=== PATIENT | female | born 1970 | race Caucasian/White ===

== ENCOUNTER 2022-12-18 17:57 | Inpatient (IN) | payer OTHER ==
[~2022-12-18] VITALS: Ht 170.2 cm; Wt 60.4 kg
[2022-12-18 20:56] LABS: BASOPHILS % (AUTO) 0.8 % (0.0-2.0); EOSINOPHILS % (AUTO) 6.8 % (1.0-6.0); HEMOGLOBIN 13.3 g/dL (12.0-16.0); LYMPHOCYTES # (AUTO) 1.5 K/uL (1.0-4.8); LYMPHOCYTES % (AUTO) 23.1 % (22.0-44.0); MEAN CORPUSCULAR HEMOGLOBIN 27.9 pg (26.0-34.0); MEAN CORPUSCULAR HGB CONC 31.6 G/dL (31.0-37.0); MEAN CORPUSCULAR VOLUME 88 fL (80-100); MONOCYTES # (AUTO) 0.4 K/uL (0.1-1.0); MONOCYTES % (AUTO) 5.8 % (2.0-9.0); NEUTROPHILS # (AUTO) 4.2 K/uL (1.8-7.7); NEUTROPHILS % (AUTO) 63.5 % (40.0-70.0); PLATELET COUNT (AUTO) 177 K/uL (150-450); RED BLOOD CELL COUNT(AUTO) 4.75 MIL/uL (4.00-5.20); RED CELL DISTRIBUTION WIDTH 13.8 % (11.5-14.5)
[2022-12-18 21:07] LABS: ANION GAP 3 mmol/L (8-16); B-TYPE NATRIURETIC PEPTIDE 170 pg/mL (0-100); CALCIUM, TOTAL 9.3 mg/dL (8.8-10.5); CARBON DIOXIDE 34 mmol/L (22-29); CHLORIDE 101 mmol/L (98-107); CREATININE 0.89 mg/dL (0.60-1.30); GLOMERULAR FILTR. RATE CALC > 60 mL/min (>60); GLUCOSE,RANDOM 87 mg/dL (70-110); POTASSIUM 4.2 mmol/L (3.5-5.1); SODIUM SERUM 138 mmol/L (136-145)
[2022-12-18 21:12] LABS: ALANINE AMINOTRANSFERASE 29 U/L (12-78); ALBUMIN 3.3 g/dL (3.4-5.0); ALKALINE PHOSPHATASE 65 U/L (46-116); ASPARTATE AMINOTRANSFERASE 17 U/L (15-37); BILIRUBIN,TOTAL 0.2 mg/dL (0.1-1.0); TOTAL PROTEIN, SERUM 6.4 g/dL (6.4-8.2)
[2022-12-18 21:36] LABS: APPEARANCE,URINE CLEAR (CLEAR); BILIRUBIN,URINE NEGATIVE (NEGATIVE); GLUCOSE, URINE (UA) NEGATIVE (NEGATIVE); KETONES,URINE NEGATIVE (NEGATIVE); LEUKOCYTE ESTERASE ,URINE LARGE (NEGATIVE); NITRATE,URINE NEGATIVE (NEGATIVE); OCCULT BLOOD,URINE NEGATIVE (NEGATIVE); PROTEIN,URINE NEGATIVE (NEGATIVE); SPECIFIC GRAVITIY, URINE 1.022 (1.003-1.030); UROBILINOGEN,URINE <=1.0 mg/dL (<=1.0)
[2022-12-18 21:43] LABS: AMPHET/METH SCREEN,URINE NEGATIVE (NEGATIVE); BARBITURATE SCREEN, URINE NEGATIVE (NEGATIVE); BENZODIAZEPINES SCREEN,URINE NEGATIVE (NEGATIVE); CANNABINOID SCREEN,URINE POSITIVE (NEGATIVE); COCAINE SCREEN,URINE NEGATIVE (NEGATIVE); METHADONE SCREEN, URINE NEGATIVE (NEGATIVE); OPIATE SCREEN,URINE NEGATIVE (NEGATIVE); PHENCYCLIDINE SCREEN,URINE NEGATIVE (NEGATIVE)
[2022-12-18 21:44] LABS: BACTERIA,URINE Few /HPF (None Seen); SQUAMOUS EPITHELIAL CELL,UR Moderate /LPF (None Seen); WBC,URINE 26-50 /HPF (0-5)
[2022-12-18] MEDS ORDERED: ASPIRIN 81 MG CHEWABLE TABLET PO ONE (21:45)
[2022-12-18] MEDS ORDERED: AmLODIPine BESYLATE 10 MG TABLET PO ONE (21:45)
[2022-12-18] MEDS ORDERED: NITROGLYCERIN 0.4 MG SUBLINGUAL TABLET #25 SL ONE (21:45)
[2022-12-18] MEDS ORDERED: CefTRIAXone 1 GM/DEXTROSE 50 ML IV ONE (22:00)
[2022-12-18] MEDS ORDERED: ONDANSETRON HCL 4 MG/2 ML VIAL IVP PRN (22:15)
[2022-12-18] MEDS: LOSARTAN POTASSIUM 25 MG TABLET PO SCH (22:25)
[2022-12-18] MEDS: NITROGLYCERIN 2% (1 GM=INCH) OINTMENT PACKET TP SCH (22:26)
[2022-12-18] MEDS: HEPARIN SODIUM,PORCINE 5,000 UNITS/ML VIAL SQ SCH (23:05)
[2022-12-18 23:10] VITALS: BP 207/94; PULSE 59; RESP 18; TEMP 98
[2022-12-18] MEDS: ACETAMINOPHEN 325 MG TABLET PO PRN (23:15)
[2022-12-18] MEDS ORDERED: LABETALOL HCL 5 MG/ML 20 ML VIAL IVP ONE (23:30)
[2022-12-18] MEDS: MELATONIN 3 MG TABLET PO PRN (23:43)
[2022-12-19] VITALS (11 sets, daily range): BP systolic 139–205; BP diastolic 68–105; PULSE 54–80; RESP 18–20; TEMP 97.5–98.7; O2SAT 99
[2022-12-19] MEDS: NITROGLYCERIN 2% (1 GM=INCH) OINTMENT PACKET TP SCH ×4 (05:03→22:18)
[2022-12-19] MEDS: HEPARIN SODIUM,PORCINE 5,000 UNITS/ML VIAL SQ SCH ×2 (08:25→16:02)
[2022-12-19] MEDS: LOSARTAN POTASSIUM 25 MG TABLET PO SCH ×2 (08:25→20:25)
[2022-12-19] MEDS: AMINOPHYLLINE 25 MG/ML 10 ML VIAL IVP PRN (10:05)
[2022-12-19] MEDS ORDERED: SESTAMIBI TC99M/UD ISOTOPE 1 EA INJ INJ ONE ×2 (10:15→12:15)
[2022-12-19] MEDS ORDERED: REGADENOSON 0.4 MG/5 ML PF SYRINGE IVP ONE ×2 (11:00→12:34)
[2022-12-19] MEDS ORDERED: AMINOPHYLLINE 25 MG/ML 10 ML VIAL IV ONE (12:34)
[2022-12-19] MEDS: HydrALAZINE HCL 20 MG/ML VIAL IVP PRN (18:52)
[2022-12-19] MEDS: ACETAMINOPHEN 325 MG TABLET PO PRN (18:52)
[2022-12-19] MEDS ORDERED: CefTRIAXone 1 GM/DEXTROSE 50 ML IV SCH (22:00)
[2022-12-19] MEDS ORDERED: SODIUM CHLORIDE 0.9% 100 ML ONE (22:19)
[2022-12-20] MEDS: HEPARIN SODIUM,PORCINE 5,000 UNITS/ML VIAL SQ SCH ×3 (00:31→17:11)
[2022-12-20] MEDS: ACETAMINOPHEN 325 MG TABLET PO PRN (00:31)
[2022-12-20] MEDS: MELATONIN 3 MG TABLET PO PRN (00:31)
[2022-12-20 00:40] VITALS: BP 121/83; PULSE 62; RESP 20; TEMP 98.6
[2022-12-20 05:10] VITALS: BP 172/83; PULSE 52; RESP 20; TEMP 97.8
[2022-12-20] MEDS: HydrALAZINE HCL 20 MG/ML VIAL IVP PRN (06:33)
[2022-12-20] MEDS: NITROGLYCERIN 2% (1 GM=INCH) OINTMENT PACKET TP SCH ×3 (06:33→17:12)
[2022-12-20 07:45] VITALS: BP 152/84; PULSE 66; RESP 21; TEMP 97.8
[2022-12-20] MEDS: LOSARTAN POTASSIUM 25 MG TABLET PO SCH (08:15)
[2022-12-20 11:22] VITALS: BP 144/68; PULSE 77; RESP 20; TEMP 98.2
[2022-12-20] MEDS ORDERED: CEFT1VIA65 IV (15:37)
[2022-12-20] MEDS ORDERED: LOSA-382 PO (15:38)
[2022-12-20 15:39] VITALS: BP 160/77; PULSE 76; RESP 20; TEMP 98.4
[2022-12-23] MEDS ORDERED: TRAZ150T79 PO (00:17)
[2022-12-23] MEDS ORDERED: NITR50CA3 PO (00:17)
[2022-12-23] MEDS ORDERED: HYDR25TA2 PO ×2 (00:17→11:15)
[2022-12-23] MEDS ORDERED: LISI-894 PO (00:17)
[2022-12-23] MEDS ORDERED: CLON-501 PO ×2 (00:17→11:15)
[2022-12-23] MEDS ORDERED: AMLO-258 PO (11:15)
[2022-12-23] MEDS ORDERED: LOSA-382 PO (11:15)
[2022-12-24] MEDS ORDERED: AMLO-258 PO (14:40)
[2022-12-24] MEDS ORDERED: CLON0.1T2 PO ×2 (14:41→14:42)
[2022-12-24] MEDS ORDERED: LOSA-382 PO (14:41)
== END 2022-12-20 20:11 | DRG 305 ==
LOC: EMS 17:58 → 5S 22:34
PROVIDERS: ADMIT Internal Medicine; ATTEND Internal Medicine
DX: I16.1 Hypertensive emergency (principal); N39.0 Urinary tract infection, site not specified; R07.89 Other chest pain; I10 Essential (primary) hypertension; R94.31 Abnormal electrocardiogram [ECG] [EKG]; F19.11 Other psychoactive substance abuse, in remission; R00.1 Bradycardia, unspecified; R77.8 Other specified abnormalities of plasma proteins; M17.0 Bilateral primary osteoarthritis of knee; G89.29 Other chronic pain; F17.210 Nicotine dependence, cigarettes, uncomplicated; Z91.010 Allergy to peanuts; Z91.018 Allergy to other foods
CPT/HCPCS: 71045; 78452; 80053; 80307; 81001; 83880; 84484; 85025; 85730; 87086; 87186; 93005; 99285; A9500; J0280; J0360; J0696; J1644; J2785; J3490; J7050; 36415-L1; 36415-TC

== ENCOUNTER 2023-12-11 03:52 | Emergency (ER) | payer MEDICAID, OTHER ==
[~2023-12-11] VITALS: Ht 170.2 cm; Wt 85.0 kg
[~2023-12-11 03:52] MED LIST: AMLO-258 PO; CLON0.1T2 PO; LOSA-382 PO
[2023-12-11 04:57] VITALS: TEMP 98.2
[2023-12-11 05:07] LABS: BASOPHILS % (AUTO) 0.3 % (0.0-2.0); EOSINOPHILS % (AUTO) 1.3 % (1.0-6.0); HEMATOCRIT 44.9 % (36-46); HEMOGLOBIN 14.7 g/dL (12.0-16.0); LYMPHOCYTES # (AUTO) 0.9 K/uL (1.0-4.8); LYMPHOCYTES % (AUTO) 5.8 % (22.0-44.0); MEAN CORPUSCULAR HEMOGLOBIN 29.5 pg (26.0-34.0); MEAN CORPUSCULAR HGB CONC 32.7 G/dL (31.0-37.0); MEAN CORPUSCULAR VOLUME 90 fL (80-100); MONOCYTES # (AUTO) 0.8 K/uL (0.1-1.0); MONOCYTES % (AUTO) 5.5 % (2.0-9.0); NEUTROPHILS # (AUTO) 13.2 K/uL (1.8-7.7); PLATELET COUNT (AUTO) 197 K/uL (150-450); RED BLOOD CELL COUNT(AUTO) 4.96 MIL/uL (4.00-5.20); RED CELL DISTRIBUTION WIDTH 12.9 % (11.5-14.5); WHITE BLOOD COUNT (AUTO) 15.2 K/uL (4.5-11.0)
[2023-12-11 05:18] LABS: ANION GAP 8 mmol/L (8-16); CALCIUM, TOTAL 10.4 mg/dL (8.8-10.5); CARBON DIOXIDE 32 mmol/L (22-29); CHLORIDE 103 mmol/L (98-107); CREATININE 1.14 mg/dL (0.60-1.30); GLOMERULAR FILTR. RATE CALC 50 mL/min (>60); GLUCOSE,RANDOM 114 mg/dL (70-110); LIPASE 30 U/L (16-77); POTASSIUM 4.2 mmol/L (3.5-5.1); SODIUM SERUM 143 mmol/L (136-145); UREA NITROGEN, BLOOD 16 mg/dL (7-18)
[2023-12-11 05:25] LABS: APPEARANCE,URINE CLEAR (CLEAR); COLOR,URINE YELLOW (YELLOW); GLUCOSE, URINE (UA) NEGATIVE (NEGATIVE); KETONES,URINE TRACE mg/dL (NEGATIVE); LEUKOCYTE ESTERASE ,URINE SMALL (NEGATIVE); NITRATE,URINE NEGATIVE (NEGATIVE); OCCULT BLOOD,URINE NEGATIVE (NEGATIVE); PH,URINE 5.5 (5.0-8.0); PROTEIN,URINE 30-70 mg/dL (NEGATIVE)
[2023-12-11 05:26] LABS: TROPONIN I-HIGH SENSITIVITY 7 ng/L (<51)
[2023-12-11 05:27] LABS: NEUTROPHILS % (AUTO) 87.1 % (40.0-70.0)
[2023-12-11 05:28] LABS: BILIRUBIN,URINE SMALL (NEGATIVE)
[2023-12-11] MEDS: AmLODIPine BESYLATE 10 MG TABLET PO ONE (05:37)
[2023-12-11 05:39] VITALS: BP 152/94; PULSE 74; RESP 18
[2023-12-11 05:41] LABS: BACTERIA,URINE None Seen /HPF (None Seen); RBC,URINE 0-2 /HPF (0-2); SQUAMOUS EPITHELIAL CELL,UR Few /LPF (None Seen)
[2023-12-11 06:30] LABS: ALANINE AMINOTRANSFERASE 34 U/L (12-78); ALBUMIN 3.9 g/dL (3.4-5.0); ALKALINE PHOSPHATASE 97 U/L (46-116); ASPARTATE AMINOTRANSFERASE 24 U/L (15-37); BILIRUBIN,TOTAL 0.6 mg/dL (0.1-1.0)
[2023-12-11] MEDS: FAMOTIDINE 20 MG/2 ML VIAL IVP ONE (06:30)
[2023-12-11] MEDS: ONDANSETRON HCL 4 MG/2 ML VIAL IVP ONE (06:30)
[2023-12-11] MEDS: SODIUM CHLORIDE 0.9% 1,000 ML IV ONE (06:30)
[2023-12-11] MEDS ORDERED: ONDA-104 PO (06:59)
[2023-12-11] MEDS ORDERED: AMLO-258 PO (06:59)
== END 2023-12-11 07:45 | disposition home or self-care (01) ==
LOC: EMS 03:53
DX: K52.9 Noninfective gastroenteritis and colitis, unspecified (principal); R11.2 Nausea with vomiting, unspecified; I10 Essential (primary) hypertension; F17.210 Nicotine dependence, cigarettes, uncomplicated; F12.90 Cannabis use, unspecified, uncomplicated; F15.10 Other stimulant abuse, uncomplicated; Z91.018 Allergy to other foods
CPT/HCPCS: 99284; 96374; 96361; 96375; 80048; 80076; 81001; 83605; 83690; 84484; 84703; 85025; 36415; 93005; J3490; J2405; J7030

== ENCOUNTER 2024-04-16 12:11 | Inpatient (IN) | payer MEDICAID ==
[~2024-04-16] VITALS: Ht 170.2 cm; Wt 93.4 kg
[~2024-04-16 12:11] MED LIST changes: +ONDA-104 PO
[2024-04-16] MEDS ORDERED: MAGNESIUM HYDROXIDE SUSPENSION 30 ML UDCUP PO PRN (13:45)
[2024-04-16] MEDS ORDERED: LOPERAMIDE HCL 2 MG CAPSULE PO PRN (13:45)
[2024-04-16] MEDS ORDERED: ACETAMINOPHEN 325 MG TABLET PO PRN (13:45)
[2024-04-16] MEDS ORDERED: MAG HYDROX/ALUMINUM HYD/SIMETH ES 30 ML SUSPENSION UDCUP PO PRN (13:45)
[2024-04-16] MEDS ORDERED: ATEN-72 PO (14:45)
[2024-04-16] MEDS ORDERED: LUMA42CA PO (14:45)
[2024-04-16] MEDS ORDERED: FLUO-418 PO (14:45)
[2024-04-16 15:55] VITALS: BP 190/100; PULSE 65; RESP 19; TEMP 97.6; O2SAT 97
[2024-04-16] MEDS: LORazepam 2 MG TABLET PO PRN (15:58)
[2024-04-16] MEDS ORDERED: AmLODIPine BESYLATE 10 MG TABLET PO SCH (16:00)
[2024-04-16 16:45] VITALS: BP_SYST 135; BP_SYST 190; BP_DIAS 100; BP_DIAS 70; PULSE 65; PULSE 67; RESP 17; RESP 19; TEMP 97.5; TEMP 97.6; O2SAT 97; O2SAT 98
[2024-04-16] MEDS: LOSARTAN POTASSIUM 50 MG TABLET PO SCH (17:00)
[2024-04-16 19:26] LABS: GLUCOMETER DEV NAME(LOC) POC.BV; POC SARS-COV2 AG, FIA NEGATIVE (NEGATIVE)
[2024-04-16 20:33] VITALS: BP 168/67; PULSE 76; RESP 18; TEMP 96.5; O2SAT 100
[2024-04-17] MEDS: ATENOLOL 50 MG TABLET PO SCH (08:27)
[2024-04-17] MEDS: AmLODIPine BESYLATE 10 MG TABLET PO SCH (08:28)
[2024-04-17 08:30] VITALS: BP 217/87; PULSE 59; RESP 17; TEMP 96.8; O2SAT 97
[2024-04-17] MEDS ORDERED: LOSARTAN POTASSIUM 50 MG TABLET PO SCH (09:00)
[2024-04-17] MEDS ORDERED: CloNIDine HCL 0.1 MG TABLET PO PRN (09:45)
[2024-04-17 10:00] VITALS: BP 196/73; PULSE 62; RESP 16; TEMP 97; O2SAT 97
[2024-04-17] MEDS: HydrALAZINE HCL 25 MG TABLET PO SCH (10:10)
[2024-04-17] MEDS: BusPIRone HCL 5 MG TABLET PO SCH (11:05)
[2024-04-17] MEDS: FLUoxetine HCL 20 MG CAPSULE PO SCH (11:05)
[2024-04-17] MEDS: ARIPiprazole 10 MG TABLET PO SCH (11:05)
[2024-04-17 11:50] VITALS: BP 187/85; PULSE 63; RESP 17; TEMP 97.2; O2SAT 97
[2024-04-17 16:34] VITALS: BP 197/86; PULSE 63; RESP 17; TEMP 97; O2SAT 96
[2024-04-17] MEDS: CloNIDine HCL 0.1 MG TABLET PO ONE (17:47)
[2024-04-17 18:48] VITALS: BP 168/86; PULSE 58; RESP 18; TEMP 97.1; O2SAT 98
[2024-04-17 20:33] VITALS: BP 146/69; PULSE 61; RESP 18; TEMP 97.8; O2SAT 96
[2024-04-18 06:06] VITALS: BP 167/68; PULSE 58; RESP 18; TEMP 96.5; O2SAT 98
[2024-04-18 08:25] VITALS: BP 165/75; PULSE 165; RESP 18; TEMP 97.7; O2SAT 96
[2024-04-18] MEDS: CloNIDine HCL 0.1 MG TABLET PO SCH (08:50)
[2024-04-18 08:57] LABS: APPEARANCE,URINE CLEAR (CLEAR); BILIRUBIN,URINE NEGATIVE (NEGATIVE); COLOR,URINE LIGHT YELLOW (YELLOW); GLUCOSE, URINE (UA) NEGATIVE (NEGATIVE); KETONES,URINE NEGATIVE (NEGATIVE); LEUKOCYTE ESTERASE ,URINE LARGE (NEGATIVE); NITRATE,URINE NEGATIVE (NEGATIVE); OCCULT BLOOD,URINE NEGATIVE (NEGATIVE); PROTEIN,URINE NEGATIVE (NEGATIVE); UROBILINOGEN,URINE <=1.0 mg/dL (<=1.0)
[2024-04-18 09:10] LABS: RBC,URINE None Seen /HPF (0-2)
[2024-04-18 09:11] LABS: BACTERIA,URINE Few /HPF (None Seen); SQUAMOUS EPITHELIAL CELL,UR Moderate /LPF (None Seen)
[2024-04-18 09:12] LABS: ALCOHOL, URINE DRUG SCREEN NEGATIVE (NEGATIVE); AMPHET/METH SCREEN,URINE NEGATIVE (NEGATIVE); BARBITURATE SCREEN, URINE NEGATIVE (NEGATIVE); BENZODIAZEPINES SCREEN,URINE NEGATIVE (NEGATIVE); CANNABINOID SCREEN,URINE NEGATIVE (NEGATIVE); COCAINE SCREEN,URINE NEGATIVE (NEGATIVE); METHADONE SCREEN, URINE NEGATIVE (NEGATIVE); OPIATE SCREEN,URINE NEGATIVE (NEGATIVE); PHENCYCLIDINE SCREEN,URINE NEGATIVE (NEGATIVE)
[2024-04-18 10:21] VITALS: BP 130/62; PULSE 66; RESP 18; TEMP 97.7; O2SAT 95
[2024-04-18 15:26] VITALS: BP 120/60; PULSE 96; RESP 18; TEMP 97.7; O2SAT 96
[2024-04-18 16:46] VITALS: BP 155/70
[2024-04-18 20:58] VITALS: BP 124/60; PULSE 61; RESP 18; TEMP 97.6; O2SAT 96
[2024-04-19 06:24] VITALS: BP 182/77; PULSE 86; RESP 18; TEMP 97.4; O2SAT 96
[2024-04-19 08:26] VITALS: BP 131/69; PULSE 60; RESP 17; TEMP 97.9; O2SAT 98
[2024-04-19 16:00] VITALS: BP 133/64; PULSE 63; RESP 17; TEMP 97.5; O2SAT 97
[2024-04-19] MEDS: CEPHALEXIN MONOHYDRATE 500 MG CAPSULE PO SCH (17:12)
[2024-04-19 21:10] VITALS: BP 130/69; RESP 18; O2SAT 98
[2024-04-20 08:09] VITALS: BP 150/69; PULSE 55; RESP 19; TEMP 98; O2SAT 97
[2024-04-20 14:21] VITALS: BP 139/64; PULSE 96; RESP 18; TEMP 97; O2SAT 98
[2024-04-20 17:24] VITALS: BP 125/63; RESP 18; O2SAT 97
[2024-04-20] MEDS: ZOLPIDEM TARTRATE 10 MG TABLET PO PRN (20:10)
[2024-04-20 20:14] VITALS: BP 121/99; PULSE 85; RESP 18; TEMP 98.5; O2SAT 97
[2024-04-21] VITALS (8 sets, daily range): BP systolic 107–177; BP diastolic 61–100; PULSE 58–64; RESP 16–20; TEMP 96.6–98.2; O2SAT 96–98
[2024-04-21] MEDS: HydrALAZINE HCL 10 MG TABLET PO PRN (01:16)
[2024-04-21] MEDS: HALOPERIDOL 5 MG TABLET PO PRN (02:35)
[2024-04-22 07:04] VITALS: BP 151/72; PULSE 77; RESP 18; TEMP 97.5; O2SAT 97
[2024-04-22] MEDS ORDERED: LOSA-382 PO (10:46)
[2024-04-22] MEDS ORDERED: ARIP10TA38 PO (10:46)
[2024-04-22] MEDS ORDERED: ATEN-72 PO (10:46)
[2024-04-22] MEDS ORDERED: CLON0.1T2 PO (10:46)
[2024-04-22] MEDS ORDERED: FLUO-418 PO (10:46)
[2024-04-22] MEDS ORDERED: AMLO-258 PO (10:46)
[2024-04-22] MEDS ORDERED: BUSP5TAB20 PO (10:46)
[2024-04-22 13:13] VITALS: BP 133/67; PULSE 61; RESP 19; TEMP 97.1; O2SAT 100
== END 2024-04-22 17:20 | disposition home or self-care (01) | DRG 753 ==
LOC: B2S 14:23 → UNDODISIN 04-21 13:15
PROVIDERS: ADMIT Psychiatry & Neurology Psychiatry; ATTEND Psychiatry & Neurology Psychiatry
PROC: GZHZZZZ Group Psychotherapy (ICD-10-PCS; principal; 2024-04-17)
PROC: GZ51ZZZ Individual Psychotherapy, Behavioral (ICD-10-PCS; 2024-04-17)
DX: F31.4 Bipolar disorder, current episode depressed, severe, without psychotic features (principal); R45.851 Suicidal ideations; F41.9 Anxiety disorder, unspecified; I10 Essential (primary) hypertension; G47.00 Insomnia, unspecified; F10.10 Alcohol abuse, uncomplicated; N39.0 Urinary tract infection, site not specified; E66.9 Obesity, unspecified; F19.10 Other psychoactive substance abuse, uncomplicated; Z79.899 Other long term (current) drug therapy; Z68.32 Body mass index [BMI] 32.0-32.9, adult
CPT/HCPCS: 80307; 81001; 87086; 87147

== ENCOUNTER 2024-09-15 02:43 | Inpatient (IN) | payer MEDICAID ==
[~2024-09-15] VITALS: Ht 170.2 cm; Wt 99.0 kg
[~2024-09-15 02:43] MED LIST changes: +ARIP10TA38 PO; +ATEN-72 PO; +BUSP5TAB20 PO; +FLUO-418 PO; -ONDA-104 PO
[2024-09-15 03:34] LABS: COVID AG,FIA SOURCE NASAL SWAB
[2024-09-15 03:39] LABS: BASOPHILS % (AUTO) 1.1 % (0.0-2.0); EOSINOPHILS % (AUTO) 0.2 % (1.0-6.0); HEMATOCRIT 44.6 % (36-46); HEMOGLOBIN 14.9 g/dL (12.0-16.0); LYMPHOCYTES # (AUTO) 1.5 K/uL (1.0-4.8); LYMPHOCYTES % (AUTO) 25.7 % (22.0-44.0); MEAN CORPUSCULAR HGB CONC 33.4 G/dL (31.0-37.0); MEAN CORPUSCULAR VOLUME 87 fL (80-100); MONOCYTES # (AUTO) 0.8 K/uL (0.1-1.0); MONOCYTES % (AUTO) 13.8 % (2.0-9.0); NEUTROPHILS # (AUTO) 3.4 K/uL (1.8-7.7); NEUTROPHILS % (AUTO) 59.2 % (40.0-70.0); PLATELET COUNT (AUTO) 173 K/uL (150-450); RED BLOOD CELL COUNT(AUTO) 5.13 MIL/uL (4.00-5.20); RED CELL DISTRIBUTION WIDTH 13.6 % (11.5-14.5); WHITE BLOOD COUNT (AUTO) 5.7 K/uL (4.5-11.0)
[2024-09-15 03:45] LABS: ANION GAP 7 mmol/L (8-16); CARBON DIOXIDE 29 mmol/L (22-29); CHLORIDE 102 mmol/L (98-107); CREATININE 1.13 mg/dL (0.60-1.30); GLOMERULAR FILTR. RATE CALC 51 mL/min (>60); GLUCOSE,RANDOM 94 mg/dL (70-110); SODIUM SERUM 138 mmol/L (136-145); UREA NITROGEN, BLOOD 12 mg/dL (7-18)
[2024-09-15 04:00] LABS: INFLUENZA TYPE A NEGATIVE FOR TYPE A (NEGATIVE); INFLUENZA TYPE B NEGATIVE FOR TYPE B (NEGATIVE)
[2024-09-15 04:03] LABS: SARS-COV2 (COVID) ANTIGEN,FIA Positive (Negative)
[2024-09-15 04:43] LABS: ALCOHOL, BLOOD (SERUM) < 3 mg/dL (0-10)
[2024-09-15 04:48] LABS: CALCIUM, TOTAL 8.9 mg/dL (8.8-10.5)
[2024-09-15 05:40] LABS: APPEARANCE,URINE HAZY (CLEAR); BILIRUBIN,URINE NEGATIVE (NEGATIVE); COLOR,URINE LIGHT YELLOW (YELLOW); GLUCOSE, URINE (UA) NEGATIVE (NEGATIVE); KETONES,URINE NEGATIVE (NEGATIVE); LEUKOCYTE ESTERASE ,URINE LARGE (NEGATIVE); NITRATE,URINE NEGATIVE (NEGATIVE); OCCULT BLOOD,URINE NEGATIVE (NEGATIVE); PH,URINE 5.5 (5.0-8.0); PH,URINE DRUG SCREEN 5.5 (5.0-8.0); PROTEIN,URINE NEGATIVE (NEGATIVE); SPECIFIC GRAVITIY, URINE 1.009 (1.003-1.030); UROBILINOGEN,URINE <=1.0 mg/dL (<=1.0)
[2024-09-15 05:46] LABS: ALCOHOL, URINE DRUG SCREEN NEGATIVE (NEGATIVE); AMPHET/METH SCREEN,URINE NEGATIVE (NEGATIVE); BARBITURATE SCREEN, URINE NEGATIVE (NEGATIVE); BENZODIAZEPINES SCREEN,URINE NEGATIVE (NEGATIVE); CANNABINOID SCREEN,URINE NEGATIVE (NEGATIVE); COCAINE SCREEN,URINE NEGATIVE (NEGATIVE); METHADONE SCREEN, URINE NEGATIVE (NEGATIVE); OPIATE SCREEN,URINE NEGATIVE (NEGATIVE); PHENCYCLIDINE SCREEN,URINE NEGATIVE (NEGATIVE)
[2024-09-15 06:18] LABS: BACTERIA,URINE Few /HPF (None Seen); RBC,URINE None Seen /HPF (0-2); SQUAMOUS EPITHELIAL CELL,UR Moderate /LPF (None Seen)
[2024-09-15] MEDS ORDERED: ONDANSETRON HCL 4 MG/2 ML VIAL IVP PRN (06:30)
[2024-09-15] MEDS: HEPARIN SODIUM,PORCINE 5,000 UNITS/ML VIAL SQ SCH (08:00)
[2024-09-15] MEDS: CefTRIAXone 1 GM/DEXTROSE 50 ML IV SCH (08:30)
[2024-09-15 10:24] VITALS: BP 128/75; PULSE 83; RESP 18; TEMP 98.5; O2SAT 95
[2024-09-15] MEDS: ARIPiprazole 10 MG TABLET PO SCH (11:11)
[2024-09-15] MEDS: BusPIRone HCL 5 MG TABLET PO SCH (11:11)
[2024-09-15] MEDS: FLUoxetine HCL 20 MG CAPSULE PO SCH (11:12)
[2024-09-15] MEDS: LOSARTAN POTASSIUM 50 MG TABLET PO SCH (11:15)
[2024-09-15] MEDS: AmLODIPine BESYLATE 10 MG TABLET PO SCH (11:15)
[2024-09-15 12:03] VITALS: BP 131/74; PULSE 73; RESP 19; TEMP 97.8; O2SAT 99
[2024-09-15 14:25] VITALS: BP 144/71; PULSE 69; RESP 19; TEMP 98; O2SAT 99
[2024-09-15 14:30] VITALS: BP 144/71; PULSE 69; RESP 19; TEMP 98; O2SAT 99
[2024-09-15 15:38] VITALS: BP 151/83; PULSE 72; RESP 18; TEMP 98.2; O2SAT 95
[2024-09-15] MEDS: ACETAMINOPHEN 325 MG TABLET PO PRN (15:40)
[2024-09-15 21:15] VITALS: BP 131/74; PULSE 70; RESP 18; TEMP 98.1; O2SAT 95
[2024-09-16] VITALS (7 sets, daily range): BP systolic 104–129; BP diastolic 65–79; PULSE 74–84; RESP 18–19; TEMP 98.4–99.5; O2SAT 94–97
[2024-09-16 07:19] LABS: BASOPHILS % (AUTO) 0.7 % (0.0-2.0); EOSINOPHILS % (AUTO) 1.1 % (1.0-6.0); HEMATOCRIT 45.3 % (36-46); LYMPHOCYTES # (AUTO) 1.1 K/uL (1.0-4.8); LYMPHOCYTES % (AUTO) 23.6 % (22.0-44.0); MEAN CORPUSCULAR HEMOGLOBIN 28.9 pg (26.0-34.0); MEAN CORPUSCULAR HGB CONC 33.2 G/dL (31.0-37.0); MEAN CORPUSCULAR VOLUME 87 fL (80-100); MONOCYTES # (AUTO) 0.6 K/uL (0.1-1.0); MONOCYTES % (AUTO) 13.7 % (2.0-9.0); NEUTROPHILS # (AUTO) 2.9 K/uL (1.8-7.7); NEUTROPHILS % (AUTO) 60.9 % (40.0-70.0); PLATELET COUNT (AUTO) 163 K/uL (150-450); RED CELL DISTRIBUTION WIDTH 13.2 % (11.5-14.5); WHITE BLOOD COUNT (AUTO) 4.7 K/uL (4.5-11.0)
[2024-09-16 07:47] LABS: CALCIUM, TOTAL 8.9 mg/dL (8.8-10.5); MAGNESIUM 1.9 mg/dL (1.80-2.40); POTASSIUM 3.9 mmol/L (3.5-5.1)
[2024-09-17 03:59] VITALS: BP 125/87; PULSE 89; RESP 18; TEMP 98.2; O2SAT 93
[2024-09-17 07:18] LABS: CHOL/HDL RATIO 3.1 (3.9-5.7)
[2024-09-17 07:46] VITALS: BP 136/86; PULSE 72; RESP 18; TEMP 98.4; O2SAT 100
[2024-09-17 11:32] VITALS: BP 122/74; PULSE 71; RESP 18; TEMP 98.2; O2SAT 100
[2024-09-17 15:27] VITALS: BP 133/82; PULSE 60; RESP 18; TEMP 98.2; O2SAT 100
[2024-09-17 19:37] VITALS: BP 131/74; PULSE 98; RESP 18; TEMP 98.4; O2SAT 98
[2024-09-18] MEDS ORDERED: SODIUM CHLORIDE 0.9% 500 ML IV ONE ×2 (02:48→06:55)
[2024-09-18 04:20] VITALS: BP 139/63; PULSE 68; RESP 18; TEMP 97.9; O2SAT 99
[2024-09-18 07:11] VITALS: BP 144/81; PULSE 67; RESP 20; TEMP 98.7; O2SAT 98
[2024-09-18 10:56] LABS: CALCIUM, TOTAL 9.2 mg/dL (8.8-10.5); CREATININE 1.01 mg/dL (0.60-1.30); POTASSIUM 4.5 mmol/L (3.5-5.1)
[2024-09-18 10:57] LABS: C-REACTIVE PROTEIN QUANT 0.32 mg/dL (0.00-0.30)
[2024-09-18 15:07] VITALS: BP 136/78; PULSE 88; RESP 18; TEMP 98.4; O2SAT 97
[2024-09-18] MEDS: REMDESIVIR 200 MG in SODIUM CHLORIDE 0.9% 250 ML IV ONE (16:31)
[2024-09-18 19:32] VITALS: BP 134/81; PULSE 79; RESP 17; TEMP 97.9; O2SAT 95
[2024-09-19 04:00] VITALS: BP 131/82; PULSE 71; RESP 18; TEMP 97.7; O2SAT 95
[2024-09-19 07:15] VITALS: BP 134/84; PULSE 74; RESP 18; TEMP 98.1; O2SAT 96
[2024-09-19 09:34] LABS: CREATININE 0.97 mg/dL (0.60-1.30); POTASSIUM 4.3 mmol/L (3.5-5.1)
[2024-09-19 09:38] LABS: ALBUMIN 3.1 g/dL (3.4-5.0); BILIRUBIN,TOTAL 0.6 mg/dL (0.1-1.0)
[2024-09-19 15:07] VITALS: BP 128/88; PULSE 78; RESP 18; TEMP 97.9; O2SAT 97
[2024-09-19] MEDS: REMDESIVIR 100 MG in SODIUM CHLORIDE 0.9% 250 ML IV SCH (16:19)
[2024-09-19 19:42] VITALS: BP 124/72; PULSE 70; RESP 19; TEMP 97.8; O2SAT 95
[2024-09-20 05:23] VITALS: BP 110/70; PULSE 66; RESP 19; TEMP 98; O2SAT 97
[2024-09-20 08:00] VITALS: BP 121/76; PULSE 70; RESP 20; TEMP 97.7; O2SAT 97
[2024-09-20 08:40] LABS: ALANINE AMINOTRANSFERASE 57 U/L (12-78); ALBUMIN 3.2 g/dL (3.4-5.0); ALKALINE PHOSPHATASE 76 U/L (46-116); ANION GAP 8 mmol/L (8-16); ASPARTATE AMINOTRANSFERASE 30 U/L (15-37); BILIRUBIN,TOTAL 0.7 mg/dL (0.1-1.0); CALCIUM, TOTAL 8.8 mg/dL (8.8-10.5); CARBON DIOXIDE 26 mmol/L (22-29); CHLORIDE 104 mmol/L (98-107); CREATININE 0.95 mg/dL (0.60-1.30); GLOMERULAR FILTR. RATE CALC > 60 mL/min (>60); GLUCOSE,RANDOM 93 mg/dL (70-110); POTASSIUM 4.2 mmol/L (3.5-5.1); SODIUM SERUM 138 mmol/L (136-145); UREA NITROGEN, BLOOD 20 mg/dL (7-18)
[2024-09-20 15:16] VITALS: BP 118/78; PULSE 72; RESP 20; TEMP 98.1; O2SAT 96
[2024-09-20 15:52] LABS: COVID AG,FIA SOURCE NASAL SWAB
[2024-09-20 16:15] LABS: SARS-COV2 (COVID) ANTIGEN,FIA Negative (Negative)
[2024-09-20 19:51] VITALS: BP 111/93; PULSE 89; RESP 20; TEMP 97.9; O2SAT 95
[2024-09-21 04:28] VITALS: BP 139/79; PULSE 83; RESP 18; TEMP 97.9; O2SAT 96
[2024-09-21 07:52] LABS: ALANINE AMINOTRANSFERASE 50 U/L (12-78); ALBUMIN 3.2 g/dL (3.4-5.0); ALKALINE PHOSPHATASE 75 U/L (46-116); ANION GAP 6 mmol/L (8-16); ASPARTATE AMINOTRANSFERASE 24 U/L (15-37); BILIRUBIN,TOTAL 0.6 mg/dL (0.1-1.0); CALCIUM, TOTAL 9.1 mg/dL (8.8-10.5); CARBON DIOXIDE 27 mmol/L (22-29); CHLORIDE 105 mmol/L (98-107); CREATININE 0.92 mg/dL (0.60-1.30); GLOMERULAR FILTR. RATE CALC > 60 mL/min (>60); GLUCOSE,RANDOM 86 mg/dL (70-110); POTASSIUM 4.2 mmol/L (3.5-5.1); SODIUM SERUM 138 mmol/L (136-145); TOTAL PROTEIN, SERUM 6.8 g/dL (6.4-8.2); UREA NITROGEN, BLOOD 24 mg/dL (7-18)
[2024-09-21 08:03] VITALS: BP 134/60; PULSE 68; RESP 18; TEMP 97.9; O2SAT 97
[2024-09-21 15:42] VITALS: BP 129/63; PULSE 69; RESP 18; TEMP 97.9; O2SAT 100
[2024-09-21 16:59] LABS: COVID AG,FIA SOURCE NASAL SWAB
[2024-09-21 17:30] LABS: SARS-COV2 (COVID) ANTIGEN,FIA Negative (Negative)
[2024-09-21 19:18] VITALS: BP 114/59; PULSE 67; RESP 19; TEMP 97.8; O2SAT 96
== END 2024-09-21 22:30 | DRG 137 ==
LOC: EMS 02:43 → EDH 06:25 → 5N 10:00 → 6N 09-17 14:57
PROVIDERS: ADMIT Internal Medicine; ATTEND Internal Medicine
PROC: GZ56ZZZ Individual Psychotherapy, Supportive (ICD-10-PCS; 2024-09-17)
PROC: GZ58ZZZ Individual Psychotherapy, Cognitive-Behavioral (ICD-10-PCS; 2024-09-17)
PROC: XW033E5 Introduction of Remdesivir Anti-infective into Peripheral Vein, Percutaneous Approach, New Technology Group 5 (ICD-10-PCS; principal; 2024-09-18)
DX: U07.1 COVID-19 (principal); J12.82 Pneumonia due to coronavirus disease 2019; R45.851 Suicidal ideations; F33.2 Major depressive disorder, recurrent severe without psychotic features; F41.9 Anxiety disorder, unspecified; I10 Essential (primary) hypertension; Z79.899 Other long term (current) drug therapy; Z91.018 Allergy to other foods
CPT/HCPCS: 71045; 80048; 80053; 80061; 80307; 81001; 83735; 85025; 86140; 87086; 87804; 96365; 99285; G0480; J0696; J1644; J7040; J7050; 36415-L1; 36415-TC